=== PATIENT | male | born 1955 | race Caucasian/White ===

== ENCOUNTER 2022-11-13 10:25 | Day surgery (SDC) | payer OTHER ==
[2022-11-08 16:33] VITALS: BMI 31.4
[2022-11-13 12:16] VITALS: PULSE 92; RESP 16; TEMP 98.1
[2022-11-13 13:26] VITALS: BP 120/75
== END 2022-11-13 12:45 | disposition home or self-care (01) ==
LOC: FASU-ENDO 10:25
PROVIDERS: ATTEND Internal Medicine Gastroenterology
PROC: 0DJD8ZZ Inspection of Lower Intestinal Tract, Via Natural or Artificial Opening Endoscopic (ICD-10-PCS; principal; 2022-11-13 11:47)
DX: Z12.11 Encounter for screening for malignant neoplasm of colon (principal)
CPT/HCPCS: 82962